=== PATIENT | female | born 1945 | race Two or more races ===

== ENCOUNTER 2024-03-23 11:02 | Emergency (ER) | payer OTHER ==
[~2024-03-23] VITALS: Ht 152.4 cm; Wt 68.9 kg
[2024-03-23] MEDS ORDERED: TOPROL XL100 M1 (11:45)
[2024-03-23 13:17] LABS: HEMOGLOBIN 14.9 g/dL (12.0-15.00); MEAN CORPUSCULAR HEMOGLOBIN 30.5 pg (27.00-32.0); MEAN CORPUSCULAR HGB CONC 34.7 g/dl (32.0-36.0); RED BLOOD COUNT 4.89 M/uL (4.00-6.00); RED CELL DISTRIBUTION WIDTH 13.6 % (11.5-14.5)
[2024-03-23 13:21] LABS: PLATELET COUNT 103 K/uL (150-450)
[2024-03-23 13:55] LABS: BILIRUBIN TOTAL 1.19 mg/dL (0.3-1.2); BILIRUBIN,CONJUGATED 0.24 mg/dL (0.0-0.2); BILIRUBIN,UNCONJUGATED 0.95 mg/dL (0.0-0.6); CALCIUM 9.7 mg/dL (8.5-10.1); CREATININE SERUM 1.01 mg/dL (0.55-1.02); GFR 52.6; POTASSIUM 3.35 mEq/L (3.5-5.1); TOTAL PROTEIN 8.1 gm/dL (6.4-8.2)
[2024-03-23 14:58] LABS: PH,URINE 5.5 (5.0-8.0); URINE APPEARANCE Cloudy; URINE BILIRRUBIN Small (NEGATIVE); URINE BLOOD Moderate; URINE COLOR Dark Yellow; URINE GLUCOSE Negative (NEGATIVE); URINE KETONE Trace (NEGATIVE); URINE LEUKOCYTE Negative; URINE NITRATE Negative; URINE PROTEIN 30 (NEGATIVE)
[2024-03-23 15:03] LABS: URINE BACTERIA 3041.6 uL (0.0-1933); URINE EPITHELIAL CELLS 143.2 uL (0.0-38.8); URINE RBC 25.8 uL (0.0-20.8); URINE WBC 22.2 uL (0.0-23.2)
[2024-03-23] MEDS ORDERED: CIPROFLOXACIN IN 5 % DEXTROSE 400 MG/200 ML PIGGYBAG IV ONE ×2 (15:45→15:49)
[2024-03-23] MEDS ORDERED: METRONIDAZOLE/SODIUM CHLORIDE 500 MG/100 ML PIGGYBACK IV ONE ×2 (15:45→15:49)
== END 2024-03-23 18:43 | disposition home or self-care (01) ==
LOC: ER 11:03
PROVIDERS: General Practice
DX: K57.32 Diverticulitis of large intestine without perforation or abscess without bleeding (principal); K59.00 Constipation, unspecified; Z91.041 Radiographic dye allergy status; I10 Essential (primary) hypertension
CPT/HCPCS: 36415; 74176; 96365; 99284; J0744; J3490